=== PATIENT | female | born 1965 | race Caucasian/White ===

== ENCOUNTER → 2016-11-27 | Outpatient (CLI) | payer BC ==
[2015-12-18 20:19] VITALS: BP 135/90
[~2016-11-27] MED LIST: NS 100 ML IV 100 ML IV ONE
--- NOTE | 2016-11-27 18:34 | CT ---
HISTORY: Pain Study: CT abdomen and pelvis with contrast Comparison: 01/25/2015 Technique: Multiple axial images of the abdomen and pelvis were obtained from the lung bases to the pubic symph ysis after the administration of IV contrast. Coronal and sagittal multiplanar reconstructions were performed. Automated dose control was used. Findings: There are mild linear densities scattered along the right lung base posteriorly which are more promi nent. The liver and spleen are normal size. There is fatty replacement throughout the liver with no focal lesion which is unchanged. The gallbladder has been removed with clips in the gallbladder porsha a. The bile ducts and pancreas are normal. The adrenals are normal. The kidneys are normal size and function normally with no hydronephrosis or renal stones. There is a 18 mm cyst along the mid polar region laterally on the right and a smaller 14 mm cyst inferiorly and anteriorly which are unchanged . The ureters are normal caliber. There is no adenopathy or ascites seen. The appendix is unremarkab le. The uterus has been removed. No adnexal mass or free fluid is seen. The bladder is unremarkable. The ovaries are atrophic with no adnexal mass or free fluid. Moderate degenerative changes are seen throughout the spine with associated mild scoliosis. No aggressive osseous lesion is seen. IMPRESSION: Status post cholecystectomy with no acute intra-abdominal abnormality seen. Mild fatty replacement throughout the liver which is unchanged. Multiple right renal cysts which are unchanged . Status post hysterectomy with no pelvic mass or inflammation. Reported By:
== END ==
LOC: RAD 17:40
PROVIDERS: ATTEND Internal Medicine
DX: R10.84 Generalized abdominal pain (principal); R50.9 Fever, unspecified; K57.92 Diverticulitis of intestine, part unspecified, without perforation or abscess without bleeding
CPT/HCPCS: 74177; A4222

== ENCOUNTER → 2017-07-22 | Outpatient (CLI) | payer BC ==
[2015-12-18 20:19] VITALS: BP 135/90
--- NOTE | 2017-07-22 11:55 | MG ---
HISTORY: Left breast pain, left armpit pain; denies palpable nodule Comparison: None FINDINGS: CC and MLO projections of the right and left breast were obtained. Scattered fibroglandular tissue i s present. No significant architectural distortion, mass or clustered microcalcifications can be obs erved to suggest malignancy. No skin thickening or nipple retraction is appreciated. No pathologica l lymphadenopathy can be identified. IMPRESSION: NO RADIOGRAPHIC EVIDENCE OF MALIGNANCY. ACR CATEGORY I - NEGATIVE EXAM. FOLLOW-UP EXAM 1 YEAR. Diagnostic CAD was utilized and reviewed. * 0 (ZERO) - ASSESSMENT INCOMPLETE; ADDITIONAL IMAGING IS NEEDED. * / (ONE) - NEGATIVE. * 2/II (TWO) - BENIGN FINDINGS. * 3/III (THREE) - PROBABLY BENIGN FINDING; SHORT INTERVAL FOLLOW-UP SUGGESTED. * 4/IV (FOUR) - SUSPICIOUS ABNORMALITY; BIOPSY SHOULD BE CONSIDERED. * 5/V - HIGHLY SUSPICIOUS OF MALIGNANCY; BIOPSY SHOULD BE PERFORMED. A NEGATIVE X-RAY REPORT SHOULD NOT DELAY BIOPSY IF A DOMINANT OR CLINICALLY SUSPICIOUS MASS IS PRESENT; 4 TO 8 PERCENT OF CANCERS ARE NOT IDENTIFIED BY X-RAY. A NEGA TIVE REPORT MAY REINFORCE THE CLINICAL IMPRESSION. ADENOSIS AND DENSE BREASTS MAY OBSCURE AN UNDERLY ING NEOPLASM. Reported By:
== END ==
LOC: RAD 10:19
PROVIDERS: ATTEND Internal Medicine
DX: N64.59 Other signs and symptoms in breast (principal)
CPT/HCPCS: 77066